=== PATIENT | male | born 1970 | race Caucasian/White ===

== ENCOUNTER 2019-03-16 14:41 | Emergency (ER) | payer MEDICAID, OTHER ==
[~2019-03-16] VITALS: Ht 175.3 cm; Wt 77.1 kg
[2019-03-16 16:05] LABS: Calcium 9.1 mg/dL (8.5-10.1); Potassium 3.9 mmol/L (3.5-5.1)
[2019-03-16 16:07] LABS: Basophils # (auto) 0 uL; Basophils % (auto) 0.4 % (0.0-2.0); Eosinophils # (auto) 0 uL; Eosinophils % (auto) 0.1 % (0.0-7.0); Hematocrit 49.3 % (41.0-53.0); Lymphocytes # (auto) 1.9 uL; Lymphocytes % (auto) 15.8 % (10.0-50.0); Mean Corpuscular Hemoglobin 32.1 pg (28.0-32.0); Mean Corpuscular Hgb Conc. 34.4 g/dL (32.0-36.0); Mean Corpuscular Volume 93.4 fL (80.0-100.0); Monocytes # (auto) 1.2 uL; Monocytes % (auto) 9.5 % (0.0-12.0); Neutrophils # (auto) 9.1 uL; Neutrophils % (auto) 74.2 % (37.0-80.0); Platelet Count (auto) 152 10^3/uL (140-450); Red Blood Cells 5.28 10^6/uL (4.5-5.90); Red Cell Distribution Width 12.8 % (11.8-14.3); White Blood Cell 12.2 10^3/uL (4.4-10.8)
[2019-03-16 16:08] LABS: BUN/Creatinine Ratio 11.2
[2019-03-16 20:59] VITALS: BP 148/102
[2019-03-16] MEDS ORDERED: HYDROcodone-ACET 7.5/325MG TAB PO ONE (21:00)
[2019-03-16] MEDS ORDERED: cefTRIAXone SOD 1,000 MG VL IM ONE ×2 (21:00→22:00)
[2019-03-16] MEDS ORDERED: TETANUS-DIPTH-ACEL PERTUSSIS 0.5ML SYRG IM ONE (21:00)
[2019-03-16] MEDS ORDERED: methylPREDNISolone SOD SUCC 125 MG/2 ML VL IM ONE (21:00)
[2019-03-16] MEDS ORDERED: cefTRIAXone SOD 1,000 MG VL ONE (21:50)
== END 2019-03-16 22:05 | disposition home or self-care (01) ==
LOC: ER 15:04
DX: S80.862A Insect bite (nonvenomous), left lower leg, initial encounter (principal); L02.416 Cutaneous abscess of left lower limb; D72.829 Elevated white blood cell count, unspecified; W57.XXXA Bitten or stung by nonvenomous insect and other nonvenomous arthropods, initial encounter; Y93.89 Activity, other specified; Y92.89 Other specified places as the place of occurrence of the external cause; Y99.8 Other external cause status
CPT/HCPCS: 10060; 36415; 80048; 85025; 90471; 90715; 96372; 99283; C1887; J0696; J2930

== ENCOUNTER 2019-03-17 22:59 | Emergency (ER) | payer MEDICAID ==
[~2019-03-17] VITALS: Ht 175.3 cm; Wt 72.6 kg
[2019-03-18] MEDS ORDERED: cefTRIAXone SOD 1,000 MG VL IM ONE
[2019-03-18 00:17] VITALS: BP 143/72
== END 2019-03-18 00:50 | disposition home or self-care (01) ==
LOC: ER 23:03
DX: L02.416 Cutaneous abscess of left lower limb (principal); Z48.01 Encounter for change or removal of surgical wound dressing
CPT/HCPCS: 96372; 99283; J0696

== ENCOUNTER 2024-02-24 20:09 | Emergency (ER) | payer MEDICAID, OTHER ==
[~2024-02-24] VITALS: Ht 175.3 cm; Wt 100.0 kg
[2024-02-24] MEDS: LIDOCAINE 1% HCL (LOCAL ANESTH.) INJ 20ML MDV IJ ONE (23:00)
[2024-02-24] MEDS ORDERED: CEPH500C PO (23:50)
[2024-02-24] MEDS ORDERED: IBUP-1456 PO (23:50)
[2024-02-25] MEDS: IBUPROFEN 800 MG TAB PO ONE (00:01)
[2024-02-25 00:03] VITALS: BP 149/97; PULSE 65; RESP 18; TEMP 98.9; O2SAT 95
== END 2024-02-25 00:05 | disposition home or self-care (01) ==
LOC: ER 20:09
DX: S81.812A Laceration without foreign body, left lower leg, initial encounter (principal); V29.99XA Rider (driver) (passenger) of other motorcycle injured in unspecified traffic accident, initial encounter; Y93.I9 Activity, other involving external motion; Y92.89 Other specified places as the place of occurrence of the external cause; Y99.8 Other external cause status
CPT/HCPCS: 12002; 73590; J2001

== ENCOUNTER 2024-03-07 11:16 | Emergency (ER) | payer MEDICAID, OTHER ==
[~2024-03-07 11:16] MED LIST: CEPH500C PO; IBUP-1456 PO
[2024-03-07 13:03] VITALS: BP 125/85; PULSE 60; RESP 18; TEMP 97.9; O2SAT 97
[2024-03-07 13:38] LABS: Basophils # (auto) 0 10 ^3/uL (0-0.2); Basophils % (auto) 0.5 % (0.0-2.0); Eosinophils # (auto) 0.1 10 ^3/uL (0-0.8); Eosinophils % (auto) 1.7 % (0.0-7.0); Hematocrit 41.5 % (41.0-53.0); Hemoglobin 14.6 g/dL (13.5-17.5); Lymphocytes # (auto) 1.7 10 ^3/uL (0.4-5.4); Mean Corpuscular Hemoglobin 32.3 pg (28.0-32.0); Mean Corpuscular Hgb Conc. 35.2 g/dL (32.0-36.0); Mean Corpuscular Volume 91.6 fL (80.0-100.0); Monocytes # (auto) 0.5 10 ^3/uL (0-1.3); Monocytes % (auto) 8.5 % (0.0-12.0); Neutrophils # (auto) 3.4 10 ^3/uL (1.6-8.6); Neutrophils % (auto) 59.3 % (37.0-80.0); Nucleated Red Blood Cells % 0.4 %; Platelet Count (auto) 246 10^3/uL (140-450); Red Blood Cells 4.53 10^6/uL (4.5-5.90); Red Cell Distribution Width 13.3 % (11.8-14.3); White Blood Cell 5.7 10^3/uL (4.4-10.8)
[2024-03-07 13:46] LABS: Chloride 108 mmol/L (98-107); Potassium 3.9 mmol/L (3.5-5.1); Sodium 140 mmol/L (136-145)
[2024-03-07 13:47] LABS: Anion Gap 4 (5-15); Carbon Dioxide 28 mmol/L (20-30)
[2024-03-07 13:48] LABS: Calcium 9.5 mg/dL (8.7-10.4)
[2024-03-07 13:52] LABS: Glucose 91 mg/dL (74-106)
[2024-03-07 13:53] LABS: BUN/Creatinine Ratio 14.8 (10.0-20.0); Blood Urea Nitrogen 13 mg/dL (9-23)
[2024-03-07] MEDS ORDERED: BACDST PO (14:07)
[2024-03-07] MEDS: cefTRIAXone SOD 1,000 MG VL IM ONE (14:21)
== END 2024-03-07 14:05 | disposition home or self-care (01) ==
LOC: ER 11:16
DX: S81.812D Laceration without foreign body, left lower leg, subsequent encounter (principal); Z79.899 Other long term (current) drug therapy; X58.XXXD Exposure to other specified factors, subsequent encounter
CPT/HCPCS: 36415; 80048; 85025; 96372; 99283; J0696